=== PATIENT | male | born 1935 | race African-American/Black ===

== ENCOUNTER 2021-05-03 17:07 | Emergency (ER) | payer OTHER ==
[~2021-05-03] VITALS: Ht 172.7 cm; Wt 75.0 kg
[2021-05-03] MEDS ORDERED: METF-960 PO (18:13)
[2021-05-03] MEDS ORDERED: ATOR40TA28 PO (18:13)
[2021-05-03] MEDS ORDERED: ASPI-1444 PO (18:13)
[2021-05-03] MEDS ORDERED: CLOP75TA60 PO (18:13)
[2021-05-03] MEDS ORDERED: FURO20 PO (18:13)
[2021-05-03] MEDS ORDERED: ATEN-73 PO (18:13)
[2021-05-03] MEDS ORDERED: METF750T60 PO (18:24)
[2021-05-03] MEDS ORDERED: FLUT16H NASAL (18:24)
[2021-05-03] MEDS ORDERED: ASPIRIN 81 MG CHEWABLE TABLET PO ONE (19:45)
[2021-05-03 20:36] LABS: COVID AG,FIA SOURCE NASOPHARYNGEAL
[2021-05-03 20:38] LABS: BASOPHILS % (AUTO) 0.8 % (0.0-2.0); HEMATOCRIT 36.5 % (41-53); HEMOGLOBIN 11.4 g/dL (13.5-17.5); LYMPHOCYTES # (AUTO) 1.3 K/uL (1.0-4.8); LYMPHOCYTES % (AUTO) 19.2 % (22.0-44.0); MEAN CORPUSCULAR HEMOGLOBIN 26.7 pg (26.0-34.0); MEAN CORPUSCULAR HGB CONC 31.1 G/dL (31.0-37.0); MEAN CORPUSCULAR VOLUME 86 fL (80-100); MONOCYTES # (AUTO) 0.5 K/uL (0.1-1.0); MONOCYTES % (AUTO) 7.3 % (2.0-9.0); NEUTROPHILS # (AUTO) 4.8 K/uL (1.8-7.7); NEUTROPHILS % (AUTO) 71.7 % (40.0-70.0); PLATELET COUNT (AUTO) 161 K/uL (150-450); RED BLOOD CELL COUNT(AUTO) 4.27 MIL/uL (4.50-5.90); RED CELL DISTRIBUTION WIDTH 15.7 % (11.5-14.5)
[2021-05-03 20:48] LABS: CALCIUM, TOTAL 8.7 mg/dL (8.8-10.5); CREATININE 1.18 mg/dL (0.60-1.30); POTASSIUM 4.2 mmol/L (3.5-5.1)
[2021-05-03 21:12] LABS: ALBUMIN 3.2 g/dL (3.4-5.0); BILIRUBIN,TOTAL 0.9 mg/dL (0.1-1.0); TOTAL PROTEIN, SERUM 6.8 g/dL (6.4-8.2)
[2021-05-03] MEDS ORDERED: SODIUM CHLORIDE 0.9% 100 ML ONE (21:12)
[2021-05-03] MEDS ORDERED: FUROSEMIDE 40 MG/4 ML VIAL IVP ONE (21:30)
[2021-05-04 01:11] LABS: GLUCOSE,POINT OF CARE 145 MG/DL (70-110)
[2021-05-04 02:46] VITALS: BP 125/70
== END 2021-05-04 02:56 | disposition short-term general hospital (02) ==
LOC: EMS 17:07
DX: I50.9 Heart failure, unspecified (principal); I48.91 Unspecified atrial fibrillation; Z79.899 Other long term (current) drug therapy; Z79.82 Long term (current) use of aspirin; Z20.822 Contact with and (suspected) exposure to COVID-19
CPT/HCPCS: 36415; 71045; 71275; 80053; 82550; 82962; 83880; 84484; 85025; 87426; 93005; 96374; 99285; J1940; J7050